=== PATIENT | male | born 1955 | race Caucasian/White ===

== ENCOUNTER 2023-11-10 15:21 | Outpatient (AMB) | payer MEDICARE, OTHER, SELFPAY ==
--- NOTE | 2023-11-10 15:20 | AM.OFFWIN_ITS ---
Intake Vital Signs 11/10/23 15:23 Height 5 ft 11 in Weight 257 lb BMI 35.8 BP 160/70 H Blood Pressure Location Lt brachial Position Sitting Pulse 79 Pulse Source Pulse Oximeter Temp 97.1 F Temp Source Temporal Artery Scan Pulse Oximetry (%) 96 Oxygen Delivery Method Room Air Intake Visit Reasons: EP tight chest headache dizzines (masked in lobby) Intake Note: pt is here today for tight chest headache dizziness started 1 week ago Patient Tobacco Use Status: Never used Tobacco Allergies No Known Allergies Allergy (Verified 11/10/23 15:21) Do you need a note to return to daycare/school/sports/work: No HPI HPI Comments History of Present Illness Details The patient presents to urgent care for evaluation of a cough times 10 days. He states this started with a URI which has since resolved. he is left with chest congestion and cough. He has suspects he may be wheezing. He has an albuterol inhaler which she has been using at home which is not providing relief. former smoker, quite 25 yr ago. no recent fever. PFSH Social History Patient Tobacco Use Status: Never used Tobacco Review of Systems Card Denies rapid heart rate, Denies dyspnea and Denies dyspnea on exertion Resp Denies dyspnea and Denies dyspnea on exertion GI Denies dyspepsia and Denies heartburn Musc Denies arthralgias and Denies muscle cramps Neuro Denies focal weakness and Denies Other visual disturbances Physical Exam Vital Signs: Last Vital Signs Temp 97.1 F 11/10/23 15:23 Pulse 79 11/10/23 15:23 BP 160/70 H 11/10/23 15:23 Pulse Ox 96 11/10/23 15:23 Oxygen Delivery Method Room Air 11/10/23 15:23 BMI result Body Mass Index 35.8 Const General: healthy appearing and no acute distress HEENT Mouth: Normal oral and palatal mucosa present Resp Other: bilateral expiratory wheeze noted throughout all lung sanchez Effort & Inspection: normal respiratory effort and able to speak in complete sentences Cardio Rate: regular rate Rhythm: regular rhythm Assessment & Plan Assessment & Plan (1) Asthma exacerbation: Code(s): J45.901 - Unspecified asthma with (acute) exacerbation Plan the patient's recent URI has precipitated his asthma exacerbation. Given the wheezing bilaterally I think it is reasonable to place him on a course of albuterol and prednisone. Given that that this is over a week after having a URI it may very well be precipitated by a bacterial infection and I think placin g him on a course of antibiotics is reasonable. Patient agreeable with this treatment plan. Medications: New benzonatate 100 mg PO TID PRN 14 caps 0RF cough azithromycin For 250 mg dose pack: take 500 mg today (day 1), then 250 mg for 4 days (days 2-5) PO 6 tabs 0RF prednisone Take 4 tabs p.o. daily x 3 days, take 2 tab x 2 days 10 mg PO DAILY 16 tabs 0RF Coding Level of Care Code Est Pt Level 3 (83729) Diagnoses Asthma exacerbation J45.901
[2023-11-10 15:23] VITALS: BP 160/70; PULSE 79; TEMP 36.2; O2SAT 96; BMI 35.8
== END 2023-11-10 17:01 | disposition home or self-care (01) ==
PROVIDERS: PCP Internal Medicine; Visit Provider Emergency Medicine
DX: J45.901 Unspecified asthma with (acute) exacerbation (principal)
CPT/HCPCS: 99213

== ENCOUNTER 2024-10-15 09:02 | Outpatient (AMB) | payer MEDICARE, OTHER, SELFPAY ==
--- NOTE | 2024-10-15 09:03 | AM.OFFWIN_ITS ---
Intake Vital Signs 10/15/24 09:06 Height 5 ft 11 in Weight 250 lb BMI 34.9 BP 122/70 Blood Pressure Location Lt brachial Position Sitting Pulse 112 H Pulse Source Pulse Oximeter Temp 97.9 F Temp Source Oral Pulse Oximetry (%) 94 Oxygen Delivery Method Room Air Intake Visit Reasons: EP COPD/diff breathing/cough, burning sensation Intake Note: Patient here for cough, difficulty breathing and burning sensation in chest since Tuesday. pt has a hx of COPD Patient Tobacco Use Status: Never used Tobacco Allergies No Known Allergies Allergy (Verified 10/15/24 09:06) HPI HPI Comments History of Present Illness Details History of Present Illness The patient is a 69-year-old male presenting with symptoms suggestive of an upper respiratory infection since Tuesday. The patient reports experiencing cold chills and respiratory symptoms similar to those associated with COVID-19, although he has tested negative for COVID-19. He describes shallow breathing, as inhalation triggers coughing and prevents the taking of deep breaths. The patient has a history of Chronic Obstructive Pulmonary Disease (COPD) and uses a daily inhaler, specifically Advair, twice daily. He does not possess a nebulizer machine at home and has not been receiving prescriptions for a rescue inhaler, despite previous prescriptions. The patient denies taking isyd-awa-fzfmikp cough and cold medications, attributing the symptoms solely to his COPD. 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 He describes a dry cough and denies expectorating any mucus. The patient experiences headaches upon coughing, which he describes as severe. He denies a history of heart failure. The patient reports decreased appetite and reduced fluid intake, leading to concerns of dehydration, as evidenced by an increased heart rate upon examination. Although he initially exhibited a heart rate of 112 bpm, it eventually normalized to 59 bpm after resting. The patient recalls a history of ear problems, including water behind the tympanic membrane and sinusitis which took a long time to resolve. Physical Exam General: Cooperative, healthy appearing, comfortable and no acute distress Orientation/consciousness: Patient oriented x3 Limitations: No limitations Head: Normal to inspection Ears: Hearing aids on, external ears normal. Right TM white effusion, left TM white effusion Nose: Normal external nose present, Normal nares present and No nasal discharge present Face and sinus: Normal facial exam and Yes sinuses nontender Mouth: Normal oral and palatal mucosa present and moist mucous membranes Throat: Yes tonsils normal, Yes uvula midline. Posterior oropharynx erythema, red back of throat Eyes: Appearance normal, both eyes and all related structures Neck: Normal visual inspection Respirtory: Clear to auscultation bilaterally. Normal respiratory effort, able to speak in complete sentences, Actively coughing, no respiratory distress, not tachypneic, no tripod positioning and no use of accessory muscles Cardiovascular: Regular rate and rhythm. Normal S1 and S2. Heart rate initially 112, later 59 Skin: No rashes or lesions noted Neuro: Patient oriented x3 Extremities: Normal to inspection and Yes no clubbing, cyanosis or edema PFSH Social History Patient Tobacco Use Status: Never used Tobacco Review of Systems Const All systems reviewed & are unremarkable except as noted in HPI and below Physical Exam Vital Signs: Last Vital Signs Temp 97.9 F 10/15/24 09:06 Pulse 112 H 10/15/24 09:06 BP 122/70 10/15/24 09:06 Pulse Ox 94 10/15/24 09:06 Oxygen Delivery Method Room Air 10/15/24 09:06 BMI result Body Mass Index 34.9 Assessment & Plan Assessment & Plan (1) URI (upper respiratory infection): Code(s): J06.9 - Acute upper respiratory infection, unspecified Plan: Chronic Obstructive Pulmonary Disease COPD): Prescribe an albuterol inhaler for use every four to six hours as needed for shortness of breath. Discuss the benefits of prednisone burst to assist with respiratory symptoms and add a Z- pack for its anti-inflammatory properties. Encourage increased fluid intake to manage symptoms of dehydration and to assist in mobilization of secretions. Recommend use of a decongestant, potentially a combination with guaifenesin such as Mucinex-D, to aid in the clearance of nasal and bronchial congestion. Plan to perform a chest X-ray to assess any changes since the last imaging study in light of the recent increase in symptoms. Arrange for testing to rule out influenza, COVID-19, and RSV, given the negative COVID-19 test previously conducted at home. The patient has consented to these plans and understands the necessity of follow-up upon results of the imaging and other diagnostic tests. Patient was informed and verbally consented to the use of an ambient scribe for clinic note documentation during this visit. (2) Acute otitis media with effusion of both ears: Code(s): H65.193 - Other acute nonsuppurative otitis media, bilateral Plan: Acute Otitis Media: Sent Augmentin given the potential presence of concurrent pneumonia. Orders: Orders SARS-CoV2/FLU/RSV Today J06.9 - Acute upper respiratory infection, unspecified XR chest 2V Today R05.9 - Cough, unspecified Medications: New azithromycin For 250 mg dose pack: take 500 mg today (day 1), then 250 mg for 4 days (days 2-5) PO 6 tabs 0RF albuterol sulfate 90 mcg/actuation 2 puffs inhalation Q6H PRN 8.5 grams 0RF shortness of breath or wheezing or cough amoxicillin-pot clavulanate 875-125 mg 1 tab PO Q12H 14 tabs 0RF prednisone 40 mg (2 x 20 mg) PO DAILY 10 tabs 0RF Coding Level of Care Code New Pt Level 4 (36159) Diagnoses URI (upper respiratory infection) J06.9 Acute otitis media with effusion of both ears H65.193
[2024-10-15 09:06] VITALS: BP 122/70; PULSE 112; TEMP 36.6; O2SAT 94; BMI 34.9
== END 2024-10-15 09:50 | disposition home or self-care (01) ==
PROVIDERS: PCP Physician Assistant; Visit Provider Physician Assistant
DX: J06.9 Acute upper respiratory infection, unspecified (principal); H65.193 Other acute nonsuppurative otitis media, bilateral

== ENCOUNTER 2024-10-15 09:02 | Outpatient (REF) | payer MEDICARE, OTHER, SELFPAY | END 2024-10-15 09:03 | disposition home or self-care (01) | LOC: HO.LAB 09:02 | PROVIDERS: PCP Physician Assistant | DX: Z13.89 Encounter for screening for other disorder (principal) | CPT/HCPCS: 99202 ==

== ENCOUNTER 2024-10-15 09:34 | Outpatient (REF) | payer MEDICARE, OTHER, SELFPAY ==
--- NOTE | ~2024-10-15 | XR_ITS ---
EXAMINATION: XR CHEST CLINICAL INFORMATION: Cough, unspecified. COMPARISON: None available. TECHNIQUE: 2 views of the chest were obtained. FINDINGS: Lung volumes are low. There is no gross pneumothorax. Heart size within normal limits. No significant pleural effusion. Degenerative changes in the thoracic spine. Streaky and patchy opacities in the mid to lower bilateral lungs, left greater than right. Surgical anchor overlies the right humeral head. XR/XR chest 2V IMPRESSION: Streaky and patchy opacities in the mid to lower bilateral lungs, left greater than right. This study was presented today October 15, 2024 for interpretation. Stat results provided at this time as requested by referring provider. Electronically signed by: Leonila Muhammad MD 10/15/2024 02:09 PM YAEL WEISS
[2024-10-15 14:34] LABS: Influenza A PCR NEGATIVE (Negative); Influenza B PCR NEGATIVE (Negative); Resp Syncy Virus RNA Qual PCR NEGATIVE (Negative); SARS COV2 PCR INHOUSE NEGATIVE (Negative)
== END 2024-10-15 09:35 | disposition home or self-care (01) ==
LOC: HO.HMGCX 09:34
PROVIDERS: Visit Provider Physician Assistant
DX: R05.9 Cough, unspecified (principal); J06.9 Acute upper respiratory infection, unspecified
CPT/HCPCS: 0241U; 71046; 99202

== ENCOUNTER 2025-10-03 14:01 | Outpatient (AMB) | payer MEDICARE, OTHER, SELFPAY ==
[2025-10-03 14:10] VITALS: BP 140/78; PULSE 83; TEMP 37.1; O2SAT 95; BMI 37.1
--- NOTE | 2025-10-03 14:10 | AM.OFFWIN_ITS ---
Intake Vital Signs 10/03/25 14:10 Height 5 ft 11 in Weight 266 lb BMI 37.1 BP 140/78 H Blood Pressure Location Rt brachial Position Sitting Pulse 83 Pulse Source Pulse Oximeter Temp 98.8 F Temp Source Oral Pulse Oximetry (%) 95 Intake Visit Reasons: EP Cough, rib pain right side Intake Note: pt is here for c/o rib pain, patient has been coughing for 2 weeks and thinks he broke a rib Patient Tobacco Use Status: Never used Tobacco Allergies No Known Allergies Allergy (Verified 10/03/25 14:16) Do you need a note to return to daycare/school/sports/work: No HPI HPI Comments History of Present Illness Details History - The patient is a 70-year-old male pres enting with persistent cough and chest discomfort. - The cough began approximately two week s ago as a head cold and progressed to the chest, accompanied by heavy mucus production. - The patient reports a history of Chron ic Obstructive Pulmonary Disease (COPD) and uses three different inhalers. - He experiences shortness of breath dep ending on activity level and has a history of similar episodes during seasonal changes. - The patient suspects a rib fracture du e to severe coughing, which caused significant pain during one episode. - He denies fever, vomiting, diarrhea, o r recent contact with sick individuals. - The patient lives alone and has not re quired prednisone recently. - He reports left ear discomfort with a sensation of fluid for over two months, hearing a bubbling sound. - The patient has hypertension and is ca utious about using snlb-wxi-thxideb cough medications. - He denies ALEXANDRE ear pain, ST, chills, CP, sick contacts, recent travel, or smoking. Physical Exam General: Cooperative, healthy appearing, comfortable and no acute distress Orientation/consciousness: Patient oriented x3 Limitations: No limitations Head: Normal to inspection Ears: Hearing grossly normal bilaterally, external ears normal and TM's normal bilaterally. Left ear with sensation of water and bubbling, no significant wax blockage noted. Nose: Normal external nose present, normal nares present, and no nasal discharge present. Face and sinus: Sinuses nontender to palpation. Mouth: Normal oral and palatal mucosa present and moist mucous membranes noted. Throat: Tonsils normal. Uvula is midline. Posterior oropharynx with erythema and no exudates. Eyes: Appearance normal, both eyes and all related structures Neck: Normal visual inspection, full ROM. No lymphadenopathy noted. Respiratory: Clear to auscultation bilaterally. Normal respiratory effort, able to speak in complete sentences. No respiratory distress, not tachypneic, no tripod positioning and no use of accessory muscles. Occasional wheezing noted after coughing. Cardiovascular: Regular rate and rhythm. Normal S1 and S2 Skin: No rashes or lesions noted Patient was informed and verbally consented to the use of an ambient scribe for clinic note documentation during this visit [facility] [place] Social History Patient Tobacco Use Status: Never used Tobacco Review of Systems Const All systems reviewed & are unremarkable except as noted in HPI and below Physical Exam Vital Signs: Last Vital Signs Temp 98.8 F 10/03/25 14:10 Pulse 83 10/03/25 14:10 BP 140/78 H 10/03/25 14:10 Pulse Ox 95 10/03/25 14:10 BMI result Body Mass Index 37.1 Results Reviewed Results Reviewed: will review the xray in the office Assessment & Plan Assessment & Plan (1) Cough: Code(s): R05.9 - Cough, unspecified Qualifiers: Cough type: acute Qualified Code(s): R05.1 - Acute cough (2) COPD exacerbation: Code(s): J44.1 - Chronic obstructive pulmonary disease with (acute) exacerbation (3) Rib pain on right side: Code(s): R07.81 - Pleurodynia Plan 1. Chronic Obstructive Pulmonary Disease (Copd) - Continue using prescribed inhalers. - Monitor for any increase in shortness of breath or wheezing. 2. Suspected Rib Fracture - Chest X-ray ordered to evaluate for rib fracture. 3. Upper Respiratory Infection - will order the resp panel to r/o viral illnesses - will order a CXR - Prescribed azithromycin (Z-Kevin) for bacterial infection. - Cough suppressant prescribed, safe for use with hypertension. Orders: Orders XR chest 2V Today R05.9 - Cough, unspecified SARS-CoV2/FLU/RSV Today R09.89 - Other specified symptoms and signs involving the circulatory and respiratory systems Medications: New benzonatate 100 mg PO bid-tid PRN 21 caps 0RF Cough 7 days azithromycin For 250 mg dose pack: take 500 mg today (day 1), then 250 mg for 4 days (days 2-5) PO 6 tabs 0RF Coding Level of Care Code Est Pt Level 4 (93351) Diagnoses Acute cough R05.1 Cough type: acute COPD exacerbation J44.1 Rib pain on right side R07.81
--- OUTSIDE RECORDS SUMMARY | 2025-10-03 17:22 | XMS_ITS | Continuity of Care Document ---
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 Onset: Type 2 diabetes mellitus Robbie Erwin M.D. O nset: 06/15/2022 Essential hypertension Robbie Erwin M.D. Ons et: 06/15/2022 Osteoarthritis Robbie Erwin M.D. Onset: Depressive disorder Robbie Erwin M.D. Onset: 06/15/2022 Gout Robbie Erwin M.D. Onset: Irritable bowel syndrome Robbie Erwin M.D. O nset: 06/16/2022 Social History Type Date Description Comments Sex Male Sex Unknown ETOH Use Rarely consumes alcohol Tobacco Use Start: Unknown Patient has never smoked Allergies and adverse reactions Description No Known Drug Allergies Medications Active Medications SIG Qnty Indications Ordering Provider Date [id number] Capsules DR 1 tab by mouth bid 90caps Robbie Erwin M.D. 06/15/2022 Metoprolol [id number] Tablets 1 bid Robbie bain M.D. 06/15/2022 [id number] Tablets 2 tabs by mouth every day and 1 pm 90tabs Robbie Erwin M.D. 06/15/2022 Vitamin S114xuc (1000 Ut) Capsules ?dose Robbie Erwin M.D. 06/15/2022 Trulicity0.75mg/0.5ML Solution Pen-Inject Inject 1 Pen Into The Skin Weekly 2units Robbie Erwin M.D. 06/15/2022 Amlodipine Gihxmfzg0fl Tablets 1 by mouth every day 30tadixon Erwin M.D. 06/15/2022 Jvdvhmmqxqwlmlacuec92 .5mg Tablets Take 1 Tablet By Mouth Every Day 90tadixon Erwin M.D. 06/15/2022 Vital Signs Date Vital Result Comment 10/13/2022 11:30am BP Systolic 146 mmHg BP Diastolic 80 mmHg Heart Rate 66 /min Height 71 inches 5'11 Weight 259.12 lb BMI (Body Mass Index) 36.1 kg/m2 Results Test Acquired Date Facility Test Result H/L Range N ote Glucose Fingerstick 10/13/2022 Inhouse Glucose Fingerstick 176 Hemoglobin A1c 10/13/2022 Inhouse Hemoglobin A1c 6.9% Hemoglobin A1c 06/16/2022 Inhouse Hemoglobin A1c 7.2 Glucose Fingerstick 06/16/2022 Inhouse Glucose Fingerstick 163 Procedures Date Code Description Status 01/26/2023 NSHOWOFF No Show Office Visit Complet ed Medical Devices Description No Information Available Encounters Type Date Location Provider Dx Diagnosis Office Visit 10/13/2022 11:15a Main Office Robbie Erwin M.D. E11.9 Type 2 diabetes mellitus without complications I10 Essential (primary) hypertension M19.90 Unspecified osteoart hritis, unspecified site K58.9 Irritable bowel synd tony without diarrhea M10.9 Gout, unspecified Assessments Date Code Description Provider 10/13/2022 E11.9 Type 2 diabetes mellitus without complications Robbie Erwin M.D. 10/13/2022 I10 Essential hypertension Robbie Erwin M.D. 10/13/2022 M19.90 Osteoarthritis Robbie nina M.D. 10/13/2022 K58.9 Irritable bowel syndrome Torito Erwin M.D. 10/13/2022 M10.9 Gout Robbie Erwin M.D. Plan of Treatment No Information Available Functional Status Description No Information Available Mental Status Description No Information Available Referrals Description No Information Available
--- OUTSIDE RECORDS SUMMARY | 2025-10-03 17:22 | XMS_ITS | Clinical Summary ---
Author Organization [facility]ine Genie [facility] Address 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 01/24/20 24 Active cholecalciferol (VITAMIN D-3) 25 mcg (1,000 unit) tablet 1 tablet (1,000 Units total). 11/02/20 16 Active cyanocobalamin (VITAMIN B-12) 1,000 mcg tablet Take 1 tablet (1,000 mcg total) by mouth 1 (one) time each day. 09/28/20 23 Active fluticasone propionate (FLONASE) 50 mcg/actuation nasal spray Administer 1 spray into affected nostril(s). 03/21/20 24 Active meclizine (ANTIVERT) 25 mg tablet Take 1 tablet (25 mg total) by mouth. 02/13/20 22 Active magnesium oxide (MAG-OX) 400 mg (241.3 elemental magnesium) tabletIndicatio ns:Hypomagnesem ia Take 1 tablet (400 mg total) by mouth 2 (two) times a day. 180 tablet 3 10/08/20 24 Active Accu-Chek Softclix LancetsIndicati ons:Type 2 diabetes mellitus with stage 3a chronic kidney disease, unspecified whether buttermaker continuous churn insulin use ([facility] V24, [facility] V28) Use with Accucheck monitor to check sugar up to two times per day 100 each 2 01/25/20 25 Active glucose blood test stripIndication s:Type 2 diabetes mellitus with stage 3a chronic kidney disease, unspecified whether buttermaker continuous churn insulin use ([facility] V24, [facility] V28) Use with accucheck softclick monitor to check sugar up to 2 times per day. Use as instructed 100 each 01/25/20 25 026 Active busPIRone (BUSPAR) 10 mg tablet Take 1 tablet (10 mg total) by mouth 2 (two) times a day. Active tiotropium (Spiriva with HandiHaler) 18 mcg per inhalation capsule Place 1 capsule (18 mcg total) into inhaler and inhale 1 (one) time each day. 90 capsule 04/21/20 25 026 Active fluticasone propion-salmete roL (ADVAIR HFA) 115-21 mcg/actuation inhaler Inhale 2 puffs by mouth 2 (two) times a day. 3 each 04/21/20 25 026 Active albuterol HFA (PROAIR HFA ; PROVENTIL HFA ; VENTOLIN HFA) 90 mcg/actuation inhaler Inhale 2 puffs by mouth every 6 (six) hours if needed for wheezing or shortness of breath. 3 each 04/21/20 25 026 Active doxazosin (CARDURA) 4 mg tablet Take 1 tablet (4 mg total) by mouth 1 (one) time each day. 90 tablet 3 04/18/20 25 Active fluticasone furoate (Arnuity Ellipta) 100 mcg/actuation blister with device inhaler Inhale 1 puff by mouth 1 (one) time each day. 1 each 04/23/20 25 026 Active citalopram (CeleXA) 20 mg tablet Take 1 tablet (20 mg total) by mouth 1 (one) time each day. 06/17/20 25 Active pen needle, diabetic (Ultra-Fine Pen Needle) 29 gauge x 1/2 needle USE TO INJECT 1-4 TIMES DAILY DIRECTED. 100 each 3 07/23/20 25 Active ketorolac (ACULAR) 0.5 % ophthalmic solutionIndicat ions:Type 2 diabetes mellitus with stage 3a chronic kidney disease, unspecified whether buttermaker continuous churn insulin use ([facility] V24, [facility] V28) Administer 1 drop into both eyes 2 (two) times a day. 2 times daily 07/29/20 25 Active dapagliflozin propanediol (Farxiga) 10 mg tabletIndicatio ns:Type 2 diabetes mellitus with stage 3a chronic kidney disease, unspecified whether correction insulin use ([facility] V24, [facility] V28) Take 1 tablet (10 mg total) by mouth 1 (one) time each day. 90 tablet 3 07/31/20 25 Active insulin glargine,hum.re c.anlog (Basaglar KwikPen U-100 Insulin) 100 unit/mL (3 mL) injection penIndications: Type 2 diabetes mellitus with stage 3a chronic kidney disease, unspecified whether buttermaker continuous churn insulin use ([facility] V24, [facility] V28) Inject 40 Units under the skin at bedtime. 45 mL 5 07/31/20 25 Active lisinopriL (PRINIVIL,ZESTR IL) 20 mg tabletIndicatio ns:Essential (primary) hypertension TAKE 1 TABLET BY MOUTH TWICE A DAY 180 tablet 3 08/09/20 25 Active ferrous sulfate 325 mg (65 mg elemental iron) tabletIndicatio ns:Iron deficiency TAKE 1 TABLET BY MOUTH EVERY DAY 90 tablet 1 09/17/20 25 Active tirzepatide (Mounjaro) 10 mg/0.5 mL injectionIndica tions:Type 2 diabetes mellitus with stage 3a chronic kidney disease, with long-term current use of insulin ([facility] V24, [facility] V28) Inject 0.5 mL (10 mg total) under the skin every 7 (seven) days. 2 mL 5 09/24/20 25 Active omeprazole (PriLOSEC) [address] capsuleIndicati ons:Gastroesoph ageal reflux disease, unspecified whether esophagitis present,Dysphag ia, unspecified type TAKE 2 CAPSULES BY MOUTH TWICE A DAY 360 capsule 3 09/26/20 25 Active metoprolol tartrate (LOPRESSOR) 25 mg tabletIndicatio ns:Essential (primary) hypertension TAKE 1 TABLET BY MOUTH TWICE A DAY 180 tablet 2 09/26/20 25 Active amLODIPine (NORVASC) 10 mg tabletIndicatio ns:Essential (primary) hypertension TAKE 1 TABLET BY MOUTH EVERY DAY 90 tablet 2 09/26/20 25 Active rosuvastatin (CRESTOR) 10 mg tablet TAKE 1 TABLET BY MOUTH EVERY DAY 90 tablet 1 09/26/20 25 Active omeprazole (PriLOSEC) [address] capsule TAKE 2 CAPSULES BY MOUTH TWICE A DAY 360 capsule 3 10/08/20 24 025 Discontinued amLODIPine (NORVASC) 10 mg tabletIndicatio ns:Essential (primary) hypertension TAKE 1 TABLET BY MOUTH EVERY DAY 90 tablet 2 01/22/20 25 025 Discontinued metoprolol tartrate (LOPRESSOR) 25 mg tabletIndicatio ns:Essential (primary) hypertension TAKE 1 TABLET BY MOUTH TWICE A DAY 180 tablet 2 01/22/20 25 025 Discontinued ferrous sulfate 325 mg (65 mg elemental iron) tabletIndicatio ns:Iron deficiency TAKE 1 TABLET BY MOUTH EVERY DAY 90 tablet 1 03/25/20 25 025 Discontinued rosuvastatin (CRESTOR) 10 mg tablet TAKE 1 TABLET BY MOUTH EVERY DAY 90 tablet 1 04/18/20 25 025 Discontinued tirzepatide (Mounjaro) 5 mg/0.5 mL injectionIndica tions:Type 2 diabetes mellitus with stage 3a chronic kidney disease, unspecified whether correction insulin use ([facility] V24, [facility] V28) INJECT 0.5 ML (5 MG TOTAL) UNDER THE SKIN EVERY 7 DAYS 2 mL 3 08/28/20 25 025 Discontinued(F ormulary change) tirzepatide (Mounjaro) 7.5 mg/0.5 mL injectionIndica tions:Type 2 diabetes mellitus with stage 3a chronic kidney disease, with long-term current use of insulin ([facility] V24, [facility] V28) Inject 0.5 mL (7.5 mg total) under the skin every 7 (seven) days. 2 mL 5 08/27/20 25 025 Discontinued(F ormulary change) Active Problems Problem Noted Date Diagnosed Date Coronary artery calcification 04/20/2024 Overview (08/27/2024): Last Assessment & Plan: The patient was found to have mild coronary artery calcifications that were obtained as part of the nuclear stress test that he completed in August 2023. The nuclear stress test myocardial perfusion imaging did not show any evidence of ischemia or infarct. The patient is currently on therapy with rosuvastatin, amlodipine, and metoprolol. On today's visit, he denies any anginal symptoms. Would recommend for the patient to continue his current therapy. Assessment & Plan (10/08/2024 11:21 AM EST): Patient has a history of mild coronary artery calcifications seen on CT scan. Nuclear stress test did not show any evidence of ischemia or infarct. He continues on medical therapy with rosuvastatin, metoprolol and amlodipine as prescribed. He denies any anginal symptoms or episodes of chest pain. He will continue current therapies. HLD (hyperlipidemia) 04/20/2024 Overview (08/27/2024): Last Assessment & Plan: The patient has a history of hyperlipidemia. He is on rosuvastatin 10 mg orally daily. Would recommend to continue his current therapy. PAC (premature atrial contraction) 04/20/2024 Overview (08/27/2024): Last Assessment & Plan: The patient has a history of frequent PACs noted on a Holter monitor from August 2023. He had a PAC burden of 13%. Echocardiogram done in September 2023 showed a normal LVEF. Nuclear stress test did not show any evidence of ischemia or infarct. The patient is on beta-rosy therapy with metoprolol. He denies any symptoms of palpitations. As such, this point, we will continue his current medication regimen. Assessment & Plan (10/08/2024 11:21 AM EST): The patient has a history of PACs noted on previous Holter monitor. Nuclear stress test at that time did not show any evidence of ischemia or infarct. Echocardiogram showed normal LVEF. He continues on beta-rosy therapy with metoprolol and denies any symptoms of palpitations. Will continue his current regimen. Primary hypertension 02/12/2022 Overview (08/27/2024): Last Assessment & Plan: The patient has a history of arterial hypertension. The patient's blood pressure today was noted to be well controlled. We'll continue the current antihypertensive medication regimen. Assessment & Plan (10/08/2024 11:21 AM EST): Patient has a history of hypertension. His blood pressure is noted to be well-controlled today. He will continue his current antihypertensive medication regimen as prescribed. Ventral hernia without obstruction or gangrene 0 07/17/2021 Nocturnal hypoxemia 02/17/2021 Obstructive sleep apnea 02/17/2021 Overview (08/27/2024): [facility] Home Sleep Apnea Test: Date 02/02/2021; Wt 260#; BMI 36; NIRMALA (AHI) 9, AI 6; HI 3; Unclassified apneas 0; Obstructive apneas 25; Central apneas 8; Mixed apneas 0; hypopneas 18; average oxygen saturation 90% (lowest 69% with saturations <88% for 5% or more of study) - Obstructive Sleep Apnea - mild; mostly obstructive apneas and hypopneas; with sleep related hypoventilation by 2020 home sleep apnea test. Last Assessment & Plan: The patient has a history of obstructive sleep apnea. He had a home-based sleep study done in January 2021 that showed evidence of obstructive sleep apnea. However, the patient states that he never follow-up with the laboratory based titration study. During today's visit, we had an extensive conversation regarding the management of his sleep apnea. He is interested in proceeding with treatment. We will refer the patient for a laboratory based CPAP titration study. Umbilical hernia without obstruction or gangrene 09/19/2020 Dysphagia 06/20/2019 Atypical mole 11/08/2018 Yarbrough's esophagus with high grade dysplasia Anxiety 01/11/2018 Esophageal reflux 01/20/2017 Allergic rhinitis 11/11/2015 Erectile dysfunction 03/29/2014 Elevated prostate specific antigen (PSA) 013 Hearing loss 10/05/2011 DM type 2 (diabetes mellitus , type 2) ([facility] V24, [facility] V28) CKD (chronic kidney disease) stage 3, GFR 30-59 ml/min ([facility] V24, [facility] V28) COPD (chronic obstructive pu lmonary disease) ([facility] V24, [facility] V28) Obesity (BMI 30-39.9) Resolved Problems Problem Noted Date Diagnosed Date Resolved Date Type 2 diabetes mellitus wit hout complication, without long-term current use of insulin ([facility] V24, [facility] V28) 01/16/2021 Encounters Date Type Department Care Team Description 08/22/2025 3:30 PM EDT Consult Internal Medicine - [place] [address] [place] [address] Carmita Hawkins PA Preop examination (Primary Dx) 07/31/2025 3:30 PM EDT Office Visit Endocrinology [place] [id number] [place] [address] Gena Kidd PA Type 2 diabetes mellitus with stage 3a chronic kidney disease, unspecified whether correction insulin use ([facility] V24, [facility] V28) (Primary Dx); Primary hypertension; Stage 3 chronic kidney disease, unspecified whether stage 3a or 3b CKD ([facility] V24, [facility] V28); Mixed hyperlipidemia from Last 3 Months Immunizations Immunization Administration Dates Next Due DTaP (Infanrix) 6wks to less than 7yo 03/29/2014 Moderna SARS-CoV-2 COVID-19, mRNA, LNP-S, preservative free 02/14/2021,01/17/2021 Tdap Tetanus diptheria acell ular pertussis (Boostrix; Adacel) 7yo and older 05/04/2017 Surgical History Surgery Date Site/Laterality Comments OTHER SURGICAL HISTORY PROCEDURE: ARTHROSCOPY PROCEDURE NEC HERNIA REPAIR PROCEDURE: MA REPAIR FIRST ABDOMINAL WALL HERNIA Medical History Medical History Date Comments Allergic rhinitis 11/11/2015 DX:Allergic rh initis Anxiety 01/11/2018 DX:Anxiety Yarbrough's esophagus with hig h grade dysplasia 04/04/2018 DX:Yarbrough's esophagus with high grade dysplasia Elevated prostate specific a ntigen (PSA) 03/26/2013 DX:Elevated prostate specifi c antigen (PSA) Erectile dysfunction 03/29/2014 DX:Erectile dysfunction Esophageal reflux 01/20/2017 DX:Esophageal reflux Hearing loss 10/05/2011 DX:Hearing loss DM type 2 (diabetes mellitus , type 2) ([facility] V24, [facility] V28) CKD (chronic kidney disease) stage 3, GFR 30-59 ml/min ([facility] V24, [facility] V28) COPD (chronic obstructive pu lmonary disease) ([facility] V24, [facility] V28) Obesity (BMI 30-39.9) Social History Tobacco Use Types Packs/Day Years Used Date Smoking Tobacco: Former Cigarettes Smokeless Tobacco: Never Tobacco Cessation:Counseling Given: Not Answered Alcohol Use Standard Drinks/Week Comments Yes 0 (1 standard drink = 0.6 oz pur e alcohol) OCC Housing Instability Answer Date Recorde d Are you worried that in the next 2 months you may not have stable housing? No 08/31/2025 Food Access & Nutrition Answer Date Rec orded Do you have access to a vari ety of food including fruits and vegetables? Yes 08/31/2025 Access to Healthcare Answer Date Record ed Within the last 3 months, ho w many times did you visit the emergency department for your medical care? 0 08/31/2025 Health Literacy Answer Date Recorded How often do you need to hav e someone help you when you read instructions, pamphlets, or other written material from your doctor or pharmacy? Never 08/31/2025 Caregiver: How often do you need to have someone help you when you read instructions, pamphlets, or other written material from your doctor or pharmacy? Not on file 08/31/2025 Financial Risk Answer Date Recorded How hard is it for you to pa y for the very basics like food, housing, medical care, and air conditioning / heating? Not very hard 08/31/2025 Transportation Answer Date Recorded Has the lack of transportati on kept you from meetings, work, or from getting things needed for daily living? No Has the lack of transportati on kept you from medical appointments or from getting medications? No 08/31/2025 Social Isolation Answer Date Recorded How often do you feel lonely or isolated from th ose around you? Never 08/31/2025 Food Risk Answer Date Recorded Within the past 12 months we worried whether our food would run out before we got money to buy more. Never true 08/31/2025 Within the past 12 months th e food we bought just didn't last and we didn't have money to get more. Never true 08/31/2025 Dependent Care Answer Date Recorded Do you need help finding or paying for care for your loved ones. For example, childrens club attendant or elderly care for an older adult? No 05/27/2025 Education Answer Date Recorded Do you think completing more education or training, like finishing a GED, going to college, or learning a trade, would be helpful for you? No 08/31/2025 Employment and Income Answer Date Recor ded During the last four weeks, have you been actively looking for work? No 08/31/2025 Living Situation Answer Date Recorded What is your living situation? Unrecognized valu e 08/31/2025 Sex and Gender Information Value Date Recorded Sex Assigned at Not on file Legal Sex Male 4:00 PM EST Gender Identity Not on file Sexual Orientation Not on file Obstetrics History Last Filed Vital Signs Vital Sign Reading Time Taken Comments Blood Pressure 120/52 08/22/2025 3:24 PM EDT Pulse 72 08/22/2025 3:24 PM EDT Temperature 36.3 C (97.3 F) 07/31/2025 3:27 PM EDT Respiratory Rate 17 04/11/2025 2:09 PM EDT Oxygen Saturation 97% 08/22/2025 3:24 PM EDT Inhaled Oxygen Concentration - - Weight 117 kg (258 lb) 08/22/2025 3:24 PM EDT Height 180.3 cm (5' 11 ) 08/22/2025 3:24 PM EDT Body Mass Index 35.98 08/22/2025 3:24 PM EDT Plan of Treatment Upcoming Encounters Date Type Department Care Team (Late st Contact Info) Description 10/21/2025 2:30 PM EST Office Visit Pulmonology - [place] [address] [place] [phone] Ella Coombs MD [address] [place] [phone] 10/31/2025 3:30 PM EST Office Visit Nephrology [facility] [address] [place] [phone] Neel Chang MD [address] [facility] [address] [place] [address] 11/07/2025 2:30 PM EST Office Visit Endocrinology - [place] [address] [place] [address] Gena Kidd PA [address] [place] [address] 02/21/2026 3:30 PM EDT Office Visit Internal Medicine - [place] [address] [place] [phone] Carmita Hawkins PA [address] [facility] [place] [address] Health Maintenance Due Date Last Done Comments Diabetes: Annual Foot Exam 1965 Pneumococcal Vaccine: 50+ Years (1 of 2 - PCV) 1974 Abdominal Aortic Aneurysm (AAA) Screen 10/30/2022 Hepatitis C Screening 10/30/2022 Medicare Annual Wellness Visit 10/30/2022 COVID-19 Vaccine ( season) 2025 01/20/2025, 07/18/2024, 09/24/2023, Additional history exists Diabetes: Blood Sugar Control Test (HGBA1C) 01/28/2026 07/31/2025, 04/30/2025, 01/29/2025, Additional history exists Diabetes: Annual Urine Albumin-Creatinine Ratio (uACR) 04/30/2026 04/30/2025, 04/30/2025, 06/06/2024 Diabetes: Annual GFR (Glomerular Filtration Rate) 04/30/2026 04/30/2025, 04/30/2025, 01/29/2025, Additional history exists Hypertension/CHF/CAD Annual BMP Blood Test 04/30/2026 04/30/2025, 04/30/2025, 01/29/2025, Additional history exists Diabetes: Annual Retina Eye Exam 07/29/2026 07/29/2025, 11/29/2023 Social Influencers of Health Screening 08/31/2026 08/31/2025 Falls Risk Assessment 09/06/2026 09/06/2025, 024 DTaP,Tdap,and Td Vaccines (6 - Td or Tdap) 08/15/2028 08/15/2018, 05/04/2017, 03/29/2014, Additional history exists Colorectal Cancer Screening: Colonoscopy 03/29/2029 03/29/2024 Cholesterol Screening (Lipid Panel) 01/29/2030 01/29/2025, 08/27/2024, 08/27/2024, Additional history exists RSV Immunization Adult Patients Completed 11/12/2023 Zoster Vaccines Completed 06/25/2024, 10/22, 09/16/2021 Influenza Vaccine Completed 08/03/2025, , 08/07/2023, Additional history exists Depression Screening Completed 08/31/2025, 03/21/20 24 HIB Vaccines Aged Out No longer eligi ble based on patient's age to complete this topic HPV Vaccines Aged Out No longer eligi ble based on patient's age to complete this topic Hepatitis A Vaccines Aged Out No long er eligible based on patient's age to complete this topic Hepatitis B Vaccines Aged Out No long er eligible based on patient's age to complete this topic IPV Vaccines Aged Out No longer eligi ble based on patient's age to complete this topic MMR Vaccines Aged Out No longer eligi ble based on patient's age to complete this topic Meningococcal ACWY Vaccine Aged Out N o longer eligible based on patient's age to complete this topic Meningococcal B Vaccine Aged Out No l onger eligible based on patient's age to complete this topic RSV Immunization Patients Under 20 months Aged Out No longer eligible based on patient's age to complete this topic Varicella Vaccines Aged Out No longer eligible based on patient's age to complete this topic Procedures Procedure Name Priority Date/Time Associated Diagnosis Comments HEMOGLOBIN A1C Routine 07/31/2025 4:13 PM EDT Type 2 diabetes mellitus with stage 3a chronic kidney disease, unspecified whether correction insulin use ([facility] V24, [facility] V28) POC GLUCOSE Routine 07/31/2025 3:37 PM EDT Type 2 diabetes mellitus with stage 3a chronic kidney disease, unspecified whether correction insulin use ([facility] V24, [facility] V28) MICROALBUMIN CREATININE URINE RATIO Routine 04/30/2025 3:19 PM EDT Stage 3 chronic kidney disease, unspecified whether stage 3a or 3b CKD ([facility] V24, [facility] V28) BASIC METABOLIC PANEL Routine 04/30/2025 3:19 PM EDT Stage 3 chronic kidney disease, unspecified whether stage 3a or 3b CKD ([facility] V24, [facility] V28) LIPID PANEL WITH REFLEX TO DIRECT LDL Routine 01/29/2025 9:37 AM EDT Mixed hyperlipidemia HM COLONOSCOPY Routine 03/29/2024 DEPRESSION SCREENING Routine 03/21/2024 FALLS RISK ASSESSMENT Routine 03/21/2024 from Last 3 Months or Most Recently Relevant to Health Maintenance Results * (ABNORMAL) Hemoglobin A1c (07/31/2025 4:13 PM EDT) Hemoglobin A1C 6.9(H) <6.5 % LAB CHEMISTRY METHOD 07/31/2025 9:44 PM EDT [facility] Mean Bld Glu Estim. 151 mg/dL LAB CHEMISTRY METHOD 07/31/2025 9:44 PM EDT [facility] Blood Venous blood specimen / Unknown Venipuncture / Unknown 07/31/2025 4:13 PM EDT 07/31/2025 4:13 PM EDT us Gena TOUSSAINT LAB BLOOD ORDERABLES Final Result [facility] [address] [place] [address], * POC glucose manually resulted (07/31/2025 3:37 PM EDT) Glucose POC 143 mg/dL Blood Capillary blood specimen / Unknown 07/31/2025 3:37 PM EDT us Gena TOUSSAINT POINT OF CARE TEST ENTER/ED IT ORDERABLES Final Result * Microalbumin creatinine urine ratio (04/30/2025 3:19 PM EDT) Creatinine, Urine 89.0 mg/dL LAB CHEMISTRY METHOD 04/30/2025 8:15 PM EDT [facility] Microalb, Ur 12.7 0.0 - 29.0 mg/L LAB CHEMISTRY METHOD 04/30/2025 8:15 PM EDT [facility] Microalb/Creat Ratio 14 <30 mg/g creat LAB CHEMISTRY METHOD 04/30/2025 8:15 PM EDT [facility] Urine Urine specimen obtained by clean catch procedure / Unknown Non-blood Collection / Unknown 04/30/2025 3:19 PM EDT 04/30/2025 3:19 PM EDT us Neel Chang MD LAB URINE ORDERABLES Final Res ult [facility] [address] [place] [address], * (ABNORMAL) Basic metabolic panel (04/30/2025 3:19 PM EDT) Sodium 138 133 - 145 mmol/L LAB CHEMISTRY METHOD 04/30/2025 7:00 PM EDT [facility] Potassium 4.3 3.5 - 5.5 mmol/L LAB CHEMISTRY METHOD 04/30/2025 7:00 PM EDT [facility] Chloride 107 96 - 110 mmol/L LAB CHEMISTRY METHOD 04/30/2025 7:00 PM EDT [facility] CO2 27 21 - 32 mmol/L LAB CHEMISTRY METHOD 04/30/2025 7:00 PM EDT [facility] Anion Gap 4 3 - 11 LAB CHEMISTRY METHOD 04/30/2025 7:00 PM EDT [facility] Glucose 179(H) 70 - 100 mg/dL LAB CHEMISTR[facility] METHOD [facility] BUN 23 5 - 25 mg/dL LAB CHEMISTRY METHOD 04/30/2025 7:00 PM [facility] Creatinine 1.58(H) 0.70 - 1.30 mg/dL LAB CHEMISTRY METHOD 04/30/2025 7:00 PM T [facility] eGFR 47(L) >=60 mL/min/1. 73m2 LAB CHEMISTRY METHOD 04/30/2025 7:00 PM T [facility] Comment:Calculation based on the Chronic Kidney Disease Epidemiology Collaboration (CKD-EPI) equation refit without adjustment for race. BUN/Creatinine Ratio 14.6 LAB CHEMISTRY METHOD 04/30/2025 7:00 PM [facility] Calcium 10.4 8.5 - 10.5 mg/dL LAB CHEMISTRY METHOD 04/30/2025 7:00 PM [facility] Blood Venous blood specimen / Unknown Venipuncture / Unknown 04/30/2025 3:19 PM EDT 04/30/2025 3:19 PM EDT us Neel Chang MD LAB BLOOD ORDERABLES Final Res ult [facility] [address] [place] [address], * (ABNORMAL) Lipid panel with reflex to direct LDL (01/29/2025 9:37 AM EDT) Cholesterol 131 0 - 200 mg/dL LAB CHEMISTRY METHOD 01/29/2025 2:35 PM EDT [facility] Triglycerides 133 0 - 150 mg/dL LAB CHEMISTRY METHOD 01/29/2025 2:35 PM EDT [facility] HDL 36(L) >=40 mg/dL LAB CHEMISTRY METHOD 01/29/2025 2:35 PM EDT [facility] LDL Calculated 68 0 - 100 mg/dL LAB CHEMISTRY METHOD 01/29/2025 2:35 PM EDT [facility] VLDL Cholesterol Kalpesh 26.6 mg/dL LAB CHEMISTRY METHOD 01/29/2025 2:35 PM EDT [facility] Non HDL Chol. (LDL+VLDL) 95 <145 mg/dL LAB CHEMISTRY METHOD 01/29/2025 2:35 PM EDT [facility] Chol/HDL Ratio 3.6 0.0 - 4.4 LAB CHEMISTRY METHOD 01/29/2025 2:35 PM EDT [facility] Blood Venous blood specimen / Unknown Venipuncture / Unknown 01/29/2025 9:37 AM EDT 01/29/2025 9:37 AM EDT Carmita TOUSSAINT LAB BLOOD ORDERABLES Fin al Result [facility] [address] [place] [address], * Colonoscopy (03/29/2024) Pathologist [facility] Colonoscopy no interpretation , abstracted Anatomical Region Laterality Modality Other Historical Provider HEALTH MAINTENANCE Final Result * Falls Risk Assessment (03/21/2024) Pathologist [facility] Falls Risk Assessment abstracted Historical Provider HEALTH MAINTENANCE Final Result * Depression Screening (03/21/2024) Pathologist [facility] Depression Screening abstracted Historical Provider HEALTH MAINTENANCE Final Result from Last 3 Months or Most Recently Relevant to Health Maintenance Insurance MEDICARE [facility] Care Teams Plush Cutter Relationship Specialty Start Date End Date Carmita Hawkins PA [address] [place] [address] PCP - General Primary Care 09/21/24
--- OUTSIDE RECORDS SUMMARY | 2025-10-03 17:23 | XMS_ITS | Patient Health Record ---
Author Organization [facility] [facility] Address [address] [place] [address] Support Name Relationship Address Phone Hermilo Yu Guarantor Unknown [phone] Allergies No Known Allergies Reason For Referral No Information Medications Medication SIG (Take, Route, Frequency, Duration) Notes Start Date End Date Status Omeprazole 20 MG as directed Orally 2 tablets twice a day Active Vitamin D3 125 MCG (5000 UT) as directed Orally 2 tablets once a day Active Januvia 100 MG 1 tablet Orally Once a day Active amLODIPine Besylate 5 MG 1 tablet Orally Once a day Active hydrOXYzine HCl 25 MG 1 tablet as needed Orally 3 times a day Active Trulicity 3 MG/0.5ML as directed Subcuta neous weekly Active Combivent Respimat 20-100 MCG/ACT 1 puff as needed Inhalation every 6 hrs Active metFORMIN HCl 500 MG as directed Orally 2 tablets twice a day Active Lisinopril 10 MG 1 tablet Orally twic e a day Active Metoprolol Succinate ER 50 MG 1 tablet Orally Once a day A ctive Social History Tobacco Use: Social History Observation Description Date Details (start date - stop date) Never Smoker NA - NA Tobacco Use/Smoking Question Answer Notes Are you a nonsmoker Alcohol Screen (Audit-C) Question Answer Notes Did you have a drink contain ing alcohol in the past year? Yes How often did you have a dri nk containing alcohol in the past year? Monthly or less (1 point) How many drinks did you have on a typical day when you were drinking in the past year? 1 or 2 drinks (0 point) How often did you have 6 or more drinks on one occasion in the past year? 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 2 diabetes mellitus with unspecified complications (E11.8) Active confirmed Problem Essential hypertension (66950224) Essential (primary) hypertension (I10) Active confirmed Problem Gastro-esophagea l reflux disease without esophagitis (785059532) Gastro-esophageal reflux disease without esophagitis (K21.9) Active confirmed Problem Asthma (316222503) Asthma (J45.909) Active confirmed Problem Body mass index 35.00 to 39.99 (113349671795901 ) Body mass index [BMI] 38.0-38.9, adult (Z68.38) Active confirmed Plan Of Treatment No Information Insurance Providers Payer Name Payer Address Payer Phone Subscriber Number Group Number Insured Name Patient Relationship to Insured Coverage Start Date Coverage End Date Medicare [address] [place] [phone] [id number] Hermilo Yu Self - patient is the insured [facility] Indemnity Plan [address] [place] [phone] [id number] Hermilo Yu Self - patient is the insured Medical (General) History Medical History History ICD Code Hypertension Diabetes mellitus type [address] Jae campbell Acid reflux Surgical History Surgery Date(Month/Year) Arthroscopic surgery b/l b/l shoulder surgery low back surgery
== END 2025-10-03 15:46 | disposition home or self-care (01) ==
PROVIDERS: PCP Physician Assistant; Visit Provider Physician Assistant Medical
DX: R05.1 Acute cough (principal); J44.1 Chronic obstructive pulmonary disease with (acute) exacerbation; R07.81 Pleurodynia

== ENCOUNTER 2025-10-03 14:01 | Outpatient (REF) | payer MEDICARE, OTHER, SELFPAY ==
--- NOTE | ~2025-10-03 | XR_ITS ---
EXAMINATION: XR CHEST CLINICAL INFORMATION: R05.9 - Cough, unspecified COMPARISON: None available. TECHNIQUE: 2 views of the chest were obtained. FINDINGS: Lungs: Low lung volumes. No focal consolidation. No evidence of pulmonary edema. Pleura: No pleural effusion or pneumothorax. Heart/Mediastinum: Cardiomediastinal silhouette is within normal limits. Bones: No acute findings. XR/XR chest 2V IMPRESSION: No acute abnormality. Electronically signed by: Bill Peacock MD 10/03/2025 03:34 PM EST
[2025-10-03 17:03] LABS: Resp Syncy Virus RNA Qual PCR NEGATIVE (Negative); SARS COV2 PCR INHOUSE NEGATIVE (Negative)
== END 2025-10-03 14:02 | disposition home or self-care (01) ==
LOC: HO.HMGCX 14:01
PROVIDERS: PCP Physician Assistant; Visit Provider Physician Assistant Medical
DX: J44.1 Chronic obstructive pulmonary disease with (acute) exacerbation (principal); J06.9 Acute upper respiratory infection, unspecified; R05.1 Acute cough; R07.81 Pleurodynia; R09.89 Other specified symptoms and signs involving the circulatory and respiratory systems
CPT/HCPCS: 71046; 87637; 99212

== ENCOUNTER → 2025-10-03 15:18 | Outpatient (BNV) | payer MEDICARE, OTHER, SELFPAY | PROVIDERS: PCP Physician Assistant; Visit Provider Radiology Body Imaging | DX: R05.9 Cough, unspecified (principal) | CPT/HCPCS: 71046 ==